=== PATIENT | female | born 1955 | race Caucasian/White ===

== ENCOUNTER 2021-08-11 12:15 | Outpatient (CLI) | payer OTHER ==
[~2021-08-11 12:15] MED LIST: Magnevist 469MG/ML 20 ML VIAL ONE
== END 2021-08-11 12:16 | disposition home or self-care (01) ==
LOC: TBSIIMAG 12:15
PROVIDERS: ATTEND Neurological Surgery
DX: D32.9 Benign neoplasm of meninges, unspecified (principal); M47.812 Spondylosis without myelopathy or radiculopathy, cervical region
CPT/HCPCS: 70553; 72141; 82565